=== PATIENT | male | born 1975 | race Caucasian/White ===

== ENCOUNTER 2020-12-16 20:23 | Inpatient (IN) ==
[2020-12-16] MEDS ORDERED: *HR* Promethazine 25 MG/ML VIAL IM PRN (21:41)
[2020-12-16] MEDS ORDERED: Ondansetron 4 MG/2 ML VIAL IVP PRN (21:41)
[2020-12-16] MEDS ORDERED: Melatonin 3 MG TABLET PO PRN (21:41)
[2020-12-16] MEDS ORDERED: Naloxone 0.4 MG/ML INJ IVP PRN (21:41)
[2020-12-16] MEDS: 0.9 % Sodium Chloride 1,000 ML IVC SCH (22:29)
[2020-12-16] MEDS: Ketorolac 15 MG/ML VIAL IVP PRN (22:30)
[2020-12-16] MEDS: Piperacillin/Tazobactam 3.375 GM in 0.9 % Sodium Chloride Mini Bag 100 ML IVPB SCH (22:30)
[2020-12-17] MEDS ORDERED: *HR* LORazepam 2 MG/ML VIAL IVP PRN ×3 (00:13)
[2020-12-17 05:38] LABS: Basophils % 0.1 %; Eosinophils # 0.1 K/mcL (0.0-0.6); Eosinophils % 0.8 %; Hematocrit 40.2 % (37.5-50.1); Hemoglobin 13.3 g/dL (12.9-16.9); Immature Granulocytes % 0.5 % (0-4); Lymphocytes # 1.1 K/mcL (0.6-4.6); Mean Corpuscular HGB Conc 33.1 g/dL (31.6-35.5); Mean Corpuscular Hemoglobin 32.4 pg (28.0-33.3); Mean Platelet Volume 10.6 fL (9.4-12.4); Monocytes # 1.1 K/mcL (0.0-1.3); Monocytes % 10.7 %; Platelet Count 205 K/mcL (140-400); Red Cell Distribution Width 11.9 % (11.5-14.5); Segmented Neutrophils % 76.9 %; White Blood Count 10.4 K/mcL (4.3-11.1)
[2020-12-17 05:49] LABS: INR 1.2; Prothrombin Time 13.3 Seconds (9.4-12.1)
[2020-12-17 05:56] LABS: Albumin 3.5 g/dL (3.5-5.7); Albumin/Globulin Ratio 1.5 (1.1-2.2); Calcium 8.4 mg/dL (8.6-10.3); Globulin 2.3 g/dL (2.4-3.5); Potassium 3.9 mEq/L (3.5-5.1); Total Protein 5.8 g/dL (6.4-8.9)
[2020-12-17] MEDS: Piperacillin/Tazobactam 3.375 GM in 0.9 % Sodium Chloride Mini Bag 100 ML IVPB SCH ×3 (06:23→22:04)
[2020-12-17] MEDS: 0.9 % Sodium Chloride 1,000 ML IVC SCH (06:23)
[2020-12-17] MEDS: Ketorolac 15 MG/ML VIAL IVP PRN ×3 (07:52→22:10)
[2020-12-17] MEDS: Folic Acid 1 MG TABLET PO SCH (07:53)
[2020-12-17] MEDS: Thiamine (B-1) 100 MG TABLET PO SCH (07:53)
[2020-12-18] MEDS: Piperacillin/Tazobactam 3.375 GM in 0.9 % Sodium Chloride Mini Bag 100 ML IVPB SCH ×3 (05:46→21:14)
[2020-12-18 05:48] LABS: Basophils % 0.3 %; Eosinophils # 0.2 K/mcL (0.0-0.6); Eosinophils % 2.5 %; Hematocrit 40.3 % (37.5-50.1); Hemoglobin 13.3 g/dL (12.9-16.9); Immature Granulocytes % 0.3 % (0-4); Lymphocytes # 1.1 K/mcL (0.6-4.6); Lymphocytes % 16.7 %; Mean Corpuscular Hemoglobin 32.5 pg (28.0-33.3); Mean Corpuscular Volume 98.5 fL (83.0-100.0); Mean Platelet Volume 10.5 fL (9.4-12.4); Monocytes # 0.7 K/mcL (0.0-1.3); Monocytes % 10.4 %; Neutrophils # 4.7 K/mcL (1.6-8.9); Platelet Count 229 K/mcL (140-400); Red Blood Count 4.09 M/mcL (4.19-5.50); Red Cell Distribution Width 11.9 % (11.5-14.5); Segmented Neutrophils % 69.8 %; White Blood Count 6.7 K/mcL (4.3-11.1)
[2020-12-18 06:10] LABS: BUN/Creatinine Ratio 16 (6-26); Blood Urea Nitrogen 21 mg/dL (6-20); Calcium 8.8 mg/dL (8.6-10.3); Carbon Dioxide 22 mEq/L (23-29); Chloride 107 mEq/L (98-107); Glucose 73 mg/dL (70-105); Osmolality,Calculated 290 (280-300); Potassium 3.9 mEq/L (3.5-5.1); Sodium 139 mEq/L (136-145); eGFR For African Americans > 60 (> 60); eGFR For Non-African Americans 58 (> 60)
[2020-12-18] MEDS: Folic Acid 1 MG TABLET PO SCH (09:59)
[2020-12-18] MEDS: Thiamine (B-1) 100 MG TABLET PO SCH (09:59)
[2020-12-19 01:52] LABS: Basophils % 0.1 %; Eosinophils # 0.2 K/mcL (0.0-0.6); Eosinophils % 2.8 %; Hematocrit 40.3 % (37.5-50.1); Hemoglobin 13.7 g/dL (12.9-16.9); Immature Granulocytes % 0.3 % (0-4); Lymphocytes # 1.4 K/mcL (0.6-4.6); Lymphocytes % 19.3 %; Mean Corpuscular Volume 97.1 fL (83.0-100.0); Mean Platelet Volume 10.5 fL (9.4-12.4); Monocytes # 0.7 K/mcL (0.0-1.3); Monocytes % 10.5 %; Neutrophils # 4.7 K/mcL (1.6-8.9); Platelet Count 268 K/mcL (140-400); Red Blood Count 4.15 M/mcL (4.19-5.50); Red Cell Distribution Width 11.9 % (11.5-14.5); White Blood Count 7.1 K/mcL (4.3-11.1)
[2020-12-19 02:12] LABS: BUN/Creatinine Ratio 14 (6-26); Blood Urea Nitrogen 17 mg/dL (6-20); Calcium 8.9 mg/dL (8.6-10.3); Carbon Dioxide 23 mEq/L (23-29); Chloride 106 mEq/L (98-107); Glucose 84 mg/dL (70-105); Osmolality,Calculated 285 (280-300); Phosphorous 3.6 mg/dL (2.7-4.5); Sodium 137 mEq/L (136-145); eGFR For African Americans > 60 (> 60); eGFR For Non-African Americans > 60 (> 60)
[2020-12-19] MEDS: Piperacillin/Tazobactam 3.375 GM in 0.9 % Sodium Chloride Mini Bag 100 ML IVPB SCH (05:58)
[2020-12-19 07:35] VITALS: O2SAT 94
[2020-12-19] MEDS: Thiamine (B-1) 100 MG TABLET PO SCH (08:08)
[2020-12-19] MEDS: Folic Acid 1 MG TABLET PO SCH (08:08)
[2020-12-19] MEDS ORDERED: Fenofibrate 54 MG TABLET PO SCH (09:00)
[2020-12-19] MEDS ORDERED: Famotidine 20 MG TABLET PO SCH (09:00)
[2020-12-19 11:10] VITALS: BP 130/95; PULSE 69; TEMP 97.9
== END 2020-12-19 12:10 | disposition home or self-care (01) | DRG 392 ==
LOC: 3ANU
PROVIDERS: ADMIT Student in an Organized Health Care Education/Training Program; ATTEND Student in an Organized Health Care Education/Training Program